=== PATIENT | female | born 1955 | race African-American/Black ===

== ENCOUNTER 2016-10-17 05:45 | Inpatient (IN) | payer OTHER, MEDICARE ==
[2016-10-13 18:15] LABS: HEMATOCRIT 37.6 % (36.0-48.0); HEMOGLOBIN 12.6 g/dL (12.0-16.0)
[2016-10-13 18:21] LABS: BUN (BLOOD UREA NITROGEN) 22 MG/DL (6-23); CALCIUM, SERUM 8.7 MG/DL (8.5-10.4); CHLORIDE, SERUM 110 MMOL/L (96-112); CO2 (CARBON DIOXIDE) 24 MMOL/L (24-34); CREATININE 1.31 MG/DL (0.55-1.02); GFR AFRICAN AMERICAN 50 ML/MIN (>=60); GFR NON AFRICAN AMERICAN 44 ML/MIN (>=60); GLUCOSE, SERUM 105 MG/DL (60-99); SODIUM, SERUM 138 MMOL/L (135-148)
[~2016-10-17] VITALS: Ht 172.7 cm; Wt 67.6 kg
--- NOTE | ~2016-10-17 | OP ---
Record Of Operation [facility] [address] [place]. [address] NAME: ASHU COON : 51 STATUS : ADM IN PAT#: [id number] AGE: 60 ADM/REG DATE : 10/17/16 MR#: [id number] REPORT SERV DATE: 10/19/16 DICTATED BY: JIGNESH LUGO II DATE: 10/19/16 REPORT STATUS : Draft TRANSCRIBED BY: MODL DATE: 10/19/16 DATE OF PROCEDURE: 10/17/2016 PREOPERATIVE DIAGNOSES: 1. Degenerative lumbar scoliosis with spondylolisthesis, L2-3, L3-4. 2. Severe multilevel stenosis, L2-3, L3-4, and L4-5. 3. Severe back and leg pain. POSTOPERATIVE DIAGNOSES: 1. Degenerative lumbar scoliosis with spondylolisthesis, L2-3, L3-4. 2. Severe multilevel stenosis, L2-3, L3-4, and L4-5. 3. Severe back and leg pain. PROCEDURE: 1. Lumbar laminectomy and facetectomy at L2-3, L3-4, and L4-5 (medically necessary to decompress the severe stenosis and not simply done to access the interbody space). 2. Interbody arthrodesis, L2-3, L3-4, and L4-5. 3. Application of prosthetic devices, L2-3, L3-4, and L4-5. 4. Posterolateral arthrodesis, L2-3, L3-4, and L4-5. 5. Use of local autograft, morselized allograft substitute, and bone morphogenic protein. 6. Segmental instrumentation, L2 through L5. 7. Use of the microscope and stereotactic spinal imaging. GLASS CUTTING MACHINE FEEDER: Jignesh Jones MD. FLUIDS: 2 L lactated Ringer's. ESTIMATED BLOOD LOSS: 200 mL. DRAINS: One drain. COMPLICATIONS: None. IMPLANTS: Precision. PREOPERATIVE HISTORY: This is a very friendly, 60-year-old female, who has been suffering with severe buttock, leg pain, and back pain. She has degenerative scoliosis with severe stenosis at multiple levels including the spondylolisthesis at L2-3 and L3-4. Overall, her spine was significantly unstable from the degeneration and scoliosis, as well as the spondylolisthesis. We discussed with her and the family the pros and cons of surgery versus continuing nonoperative care. Her son, who also had successfully undergone surgery recently and understood the surgery in general. We discussed the more common risks which include, but are not limited to infection, abscess, CSF leak, hematoma and a small chance of heart attack and stroke. We discussed the outcomes of the surgery and the expectations regarding improving back and leg pain. She and the family were aware that this was a fairly large surgery, but should be able to improve upon her quality of life in most circumstances. We Record Of Operation [facility] [id number] [facility] [place]. [address] NAME: ASHU COON : 51 STATUS : ADM IN PAT#: [id number] AGE: 60 ADM/REG DATE : 10/17/16 MR#: [id number] REPORT SERV DATE: 10/19/16 DICTATED BY: JIGNESH LUGO II DATE: 10/19/16 REPORT STATUS : Draft TRANSCRIBED BY: EVERARDO DATE: 10/19/16 did discuss however the chance that she could have most likely some continued back pain. I did not believe we could eradicate her back pain. DESCRIPTION OF PROCEDURE: After informed consent was obtained, the patient was brought to the operating room at her request, and general anesthesia was achieved. She was placed in a prone position. The back was prepped and draped in a sterile fashion. At this point, the stereotactic spinal pin was placed on the right and the intraoperative CT scan was completed. Stereotactic guidance was used frequently throughout the case and helped make the incision smaller as well as improve the accuracy of our decompression and the instrumentation portion of the case. At this point, the incision was made just to the left of the midline to give us thicker dermis for closure. Dr. Jones and I performed the procedure together. His assistance was very instrumental in performing the surgery and also expediting the surgery At this point, Dr. Jones and I performed the subperiosteal exposure from L2 to L5. The deep retractors were placed. We dissected upon the transverse processes on the right in particular. The severely hypertrophic facets were now identified. Under the microscope, we then now perform the laminectomy and facetectomy. The decompression was now performed and overall to adequately decompress the neural elements. We had to sacrifice a greater than 80% of the joint bilaterally. We started this procedure at L2-3 and performed a eajmjnk-dz-amtqkbo decompression. The pars was now removed bilaterally. The severe central lateral recess and foraminal stenosis was now alleviated with the high-speed bur, the Kerrison rongeurs, and the curettes. The dura was now well decompressed. Next, we worked down to the L3-4 level, where upon the similar procedure was performed and the aggressive facetectomy was performed. The boqpybv-hw-zzrrmok decompression was also achieved and the L3 and L4 nerve roots well decompressed. Again, this was simply medically necessary to give her some improvement in her neurogenic claudication. Next, the L4-5 level was addressed in a similar manner with laminectomy and removal of the hypertrophic facets. The severely stenotic canal was now well decompressed with removal of ligamentum hypertrophy in the facets. At this point, there was amazing improvement in the aperture of the thecal sac. We were able to now see significant improvement in pulsatile CSF flow underneath the dura. Fortunately, we did not encounter any actual CSF leaks. At this point. Please note, we did perform irrigation frequently and periodically throughout the case. Next, the interbody arthrodesis was initiated at L2-3. We gently retracted the L3 nerve root and the interbody space now was encountered. The true were used for diskectomy and endplate preparation. The true were used as well as the up-going, down-going, and straight pituitary rongeurs. The true were also used. Punctate bleeding bone was identified at L2-L3. The area was now irrigated followed by placement of the prosthetic device into the anterior column. This was a prosthetic device made of PEEK. Please note, Record Of Operation [facility] [address] [place]. [address] NAME: ASHU COON : 51 STATUS : ADM IN PAT#: [id number] AGE: 60 ADM/REG DATE : 10/17/16 MR#: [id number] REPORT SERV DATE: 10/19/16 DICTATED BY: JIGNESH LUGO II DATE: 10/19/16 REPORT STATUS : Draft TRANSCRIBED BY: MODL DATE: 10/19/16 we also placed allograft substitute into the anterior column. This was a morcellized allograft substitute. Next, we then performed a similar procedure at L3-4. The L4 nerve root was retracted and the disk space was identified. The endplate was prepared with the true, the curettes, and the pituitary rongeurs. The area was now irrigated followed by placement of the prosthetic device into the anterior column. Please note, we also placed a local autograft into the anterior column, as we had a significant amount of local autograft from the facetectomy and laminectomy. Lastly, the L4-5 level was addressed in a similar manner, with diskectomy, and endplate preparation, with minimal retraction of the L5 nerve root. The endplates were now prepared and the curettes and the true were used. The prosthetic device was then well placed at L4-L5. Local autograft was also placed into the anterior disk space At this point, the pedicle screws were now applied into L2 to L5. The bone quality was excellent. The repeat CT scan confirmed acceptable placement of the implants. We now did a moderate amount of distraction and compression to assist with some correction of her coronal deformity. The spondylolisthesis at L2-3 and L3-4 was largely now corrected with the interbody arthrodesis and manipulation of the disk space in general. At this point, the rods were then final tightened. Again at this point, the repeat CT scan had confirmed acceptable placement of the implants. Next, we then decorticated the transverse processes of L2, L3, L4, and L5 on the right side. We also decorticated the remaining lateral aspect of the facet at L2-3, L3-4, and L4-5. Local autograft, allograft substitute, and bone morphogenic protein were then placed along these decorticated surfaces. A deep drain was placed followed by standard closure. At this point, the patient was now extubated and transferred to PACU, following dressing application and extubation. Also please note that I spoke extensively with one of the patient's son postoperatively, and explained to him the procedure, and he voiced understanding and appreciation. ALEKSANDAR/EVERARDO Jignesh Lugo II, M.D. / [id number] CC: William Maciel II, TINA *
--- NOTE | ~2016-10-17 | DS ---
Discharge Summary [facility] [address] [place]. [address] NAME: ASHU EDGE : 51 STATUS : DIS IN PAT#: [id number] AGE: 60 ADM/REG DATE : 10/17/16 MR#: [id number] REPORT SERV DATE: 10/29/16 DICTATED BY: JIGNESH LUGO II DATE: 10/28/16 REPORT STATUS : Draft TRANSCRIBED BY: EVERARDO DATE: 10/28/16 Data Collection from hospitalization DISCHARGE DIAGNOSES: 1. Degenerative lumbar scoliosis with spondylolisthesis at L2-3, L3-4. 2. Severe multilevel stenosis, L2-3, L3-4, and L4-5. 3. Severe back and leg pain. 4. Hypertension. 5. Depression. 6. Heart murmur. CONSULTATIONS: None. PROCEDURES: Lumbar laminectomy and facetectomy at L2-3, L3-4 and L4-5 (medically necessary to decompress the severe stenosis and not simply done to access the interbody space); interbody arthrodesis, L2-3, L3-4 and L4-5; application of prosthetic devices at L2-3, L3-4 and L4-5; posterolateral arthrodesis, L2-3, L3-4, and L4-5; use of local autograft, morselized allograft substitute, and bone morphogenic protein; segmental instrumentation, L2 through L5; use of microscope and stereotactic spinal imaging, 10/17/2016. PATHOLOGY: Tissue from L2-5-benign soft tissue, bone, and cartilage. Medullary bone with bone marrow particles with trilineage hematopoiesis. MEDICATIONS: Colace 100 mg twice a day, MS Contin 15 mg twice a day, Topamax 25 mg twice a day, Desyrel 50 mg at bedtime, Tylenol 650 mg every four hours as needed, Mylanta 30 mL as needed, Dulcolax 15 mg as needed, Valium 2 mg one to two tablets every eight hours as needed, milk of magnesia 30 mL twice a day as needed, Percocet 5 mg one to two tablets every to six hours as needed for pain. CONDITION AT DISCHARGE: Stable. DISPOSITION: The patient was discharged to [facility] on a regular diet with activities as instructed. HOSPITAL COURSE: This is a 60-year-old female who had complained of lumbar spine related symptoms. She had degenerative lumbar scoliosis with spondylolisthesis at L2-3, L3-4. She has severe multilevel stenosis at L2-3, L3-4, and L4-5. She has severe back and leg pain. Treatment options were discussed, and it was elected to proceed with surgical intervention. She was admitted to the hospital at this time for further evaluation and treatment. Upon admission, she was taken to the operating room where she underwent the above-mentioned procedure. She tolerated this well. There were no complications. On postop day 1, she was stable. Her abdomen was soft. She was evaluated by Physical Therapy. On postop day 2, she had no focal deficits. Respiratory effort was normal. Over the next couple of days, she continued to progress. Discharge planning was performed. She was ambulatory. On 10/23/2016, she was alert and cooperative. Discharge instructions were given. Due to her improved and stable condition, she was discharged to [facility] with the above- stated instructions. Discharge Summary [address] [place]. [address] NAME: ASHU EDGE : 51 STATUS : DIS IN PAT#: [id number] AGE: 60 ADM/REG DATE : 10/17/16 MR#: [id number] REPORT SERV DATE: 10/29/16 DICTATED BY: JIGNESH LUGO II DATE: 10/28/16 REPORT STATUS : Draft TRANSCRIBED BY: EVERARDO DATE: 10/28/16 Information collected by: Connie Mcfarland I submit the above information as my discharge summary. MAGGI/EVERARDO Jignesh Lugo II, M.D. / [id number] CC: William Maciel II
[~2016-10-17 05:45] MED LIST: NORCO1 TAB PO; PRIN10 PO; TOPAMAX25 PO; TRAZ50 PO
[2016-10-17 20:17] LABS: HEMATOCRIT 23.9 % (36.0-48.0); HEMOGLOBIN 8.2 g/dL (12.0-16.0)
[2016-10-18 04:42] LABS: HEMATOCRIT 24.3 % (36.0-48.0); HEMOGLOBIN 8.3 g/dL (12.0-16.0)
== END 2016-10-23 13:56 | DRG 457 ==
LOC: ENRESERVTM → ENRESERV → ENRESERVDT → 3SO 08:08 → SDC/OF 08:08 → IMCU 21:25 → 3SO 10-18 16:29
PROVIDERS: Anesthesiology; Orthopaedic Surgery
DX: M41.86 Other forms of scoliosis, lumbar region (principal); D62 Acute posthemorrhagic anemia; I10 Essential (primary) hypertension; Z90.710 Acquired absence of both cervix and uterus; M48.06 Spinal stenosis, lumbar region; M51.16 Intervertebral disc disorders with radiculopathy, lumbar region; M43.16 Spondylolisthesis, lumbar region; Z79.899 Other long term (current) drug therapy; F32.9 Major depressive disorder, single episode, unspecified
CPT/HCPCS: 36415; 71010; 80048; 82962; 85014; 85018; 86850; 86900; 86901; 87641; 88304; 88311; 93005; 97110-GP; 97116-GP; 97161-GP; A9270-GY; C1713; G8978-CK-GP; G8979-CJ-GP; J0690; J1170; J2250; J2405; J2710; J3010; J3370; P9045